=== PATIENT | female | born 1995 | race Caucasian/White ===

== ENCOUNTER 2019-05-08 18:56 | Emergency (ER) | payer OTHER, SELFPAY ==
[2019-05-08 19:32] VITALS: BP 131/84; PULSE 80; RESP 20; TEMP 37.3; O2SAT 99
--- NOTE | 2019-05-08 20:29 | ED.SKABFB ---
HPI - Skin/Abscess/Foreign Bdy General Chief complaint: Skin/Abscess/Foreign Body Stated complaint: thinks bites on hand and cheek Time Seen by Provider: 05/08/19 20:29 Source: patient Mode of arrival: ambulatory Limitations: no limitations History of Present Illness HPI narrative: Perla Flor is a 23 yo female with PMH of asthma who comes to urgent care with skin rash on right hand and hives and rash on right side of face. Patient is unsure what what caused this but had stated friend's house last night when she started to break out Related Data Allergies Allergy/AdvReac Type Severity Reaction Status Date / Time No Known Allergies Allergy Verified 05/08/19 19:38 Review of Systems Review of Systems: Narrative: CONSTITUTIONAL: Denies fever, chills, sweats. EYES: Denies visual changes, redness, discharge. ENT: Denies rhinorrhea, congestion, sore throat, otalgia. CARDIOVASCULAR: Denies chest pain, palpitations, edema. RESPIRATORY: Denies dyspnea, wheezing, cough GASTROINTESTINAL: Denies abdominal pain, nausea, vomiting, diarrhea. GENITOURINARY: Denies dysuria, hematuria, abnormal discharge SKIN: Rash and hives on right hand and right face MUSCULOSKELETAL: Denies acute back pain, joint pain, or myalgia. NEUROLOGIC: Denies numbness, or focal weakness. PSYCHIATRIC: Denies anxiety or depression. PMFSH Social History Social History Smoking status: Current every day smoker Alcohol intake: current Comments At time of signature, I agree with nursing past medical, surgical, social and family history. There is no relevant family history pertinent to the presenting complaint. Exam Narrative: Exam Narrative: GENERAL: This is a well-nourished, well-developed patient, in mild distress. HEAD: normocephalic, atraumatic. EYES: PERRL. Sclera clear/white. Vision is grossly intact. EARS: External ears normal, auditory canals clear Hearing grossly intact. NOSE: External nose normal with no obvious nasal discharge, nares without redness, no rhinorrhea. THROAT: Mucous membranes moist, posterior pharynx clear. Mouth: poor dentition, no lesions in mouth NECK: Neck supple, non-tender CARDIOVASCULAR: Regular rate and rhythm without murmurs, gallops, or rubs. RESPIRATORY: Clear to auscultation. Breath sounds equal bilaterally. mild wheezes, rales, or rhonchi. GASTROINTESTINAL: Abdomen soft, non-tender, SKIN: warm, intact -hives to right face, petechial rash to right hand with swelling NEURO: awake, alert, and oriented to person, place and time. There were no obvious focal neurologic abnormalities. Steady gait EXTREMITIES: Normal range of motion. No edema. BACK: Nontender without deformity . Course Course Emergency Course: Started treatment with Benadryl and Keflex Vital Signs Vital signs: Vital Signs Temperature 99.1 F 05/08/19 19:32 Pulse Rate 80 05/08/19 19:32 Respiratory Rate 20 05/08/19 19:32 Blood Pressure 131/84 05/08/19 19:32 Pulse Oximetry 99 05/08/19 19:32 Temperature 99.1 F 05/08/19 19:32 Pulse Rate 80 05/08/19 19:32 Respiratory Rate 20 05/08/19 19:32 Blood Pressure 131/84 05/08/19 19:32 Pulse Oximetry 99 05/08/19 19:32 MDM - Skin/Abscess/Foreign Bdy Differential Diagnosis Differential diagnosis: Likely abscess of skin or subcutaneous tissue, urticaria and cellulitis Discharge Plan Discharge Clinical Impression: Contact dermatitis Qualifiers: Contact dermatitis type: unspecified Contact dermatitis trigger: unspecified trigger Qualified Code(s): L25.9 - Unspecified contact dermatitis, unspecified cause Cellulitis Qualifiers: Site of cellulitis: extremity Site of cellulitis of extremity: upper extremity Laterality: right Qualified Code(s): L03.113 - Cellulitis of right upper limb Patient Disposition: Home, Self-Care Condition: Stable Instructions: Antibiotic Form, Cellulitis (DC) Prescriptions: New ce
== END 2019-05-08 20:40 | disposition home or self-care (01) ==
PROVIDERS: Emergency Provider Nurse Practitioner
DX: L25.9 Unspecified contact dermatitis, unspecified cause (principal); L03.113 Cellulitis of right upper limb; F17.200 Nicotine dependence, unspecified, uncomplicated
CPT/HCPCS: 99213; G0463

== ENCOUNTER 2019-07-20 19:06 | Emergency (ER) | payer OTHER, SELFPAY ==
[2019-07-20 19:15] VITALS: BP 127/88; PULSE 97; RESP 20; TEMP 36.8; O2SAT 98
--- NOTE | 2019-07-20 19:18 | ED.DENTAL ---
HPI - Dental/Oral General Chief complaint: Dental/Oral Stated complaint: tooth pain Time Seen by Provider: 07/20/19 19:20 Source: patient and RN notes reviewed Mode of arrival: ambulatory Limitations: no limitations History of Present Illness Complaint: tooth pain Location: Tooth # (16) Related Data Allergies Allergy/AdvReac Type Severity Reaction Status Date / Time No Known Allergies Allergy Verified 07/20/19 19:30 Review of Systems Review of Systems: Narrative: CONSTITUTIONAL: Denies malaise, chills, sweats, or fever. EYES: Denies visual changes ENT: Denies rhinorrhea, congestion, sinus pain, otalgia or sore throat. Reports left upper dental pain, facial swelling CARDIOVASCULAR: Denies chest pain, palpitations RESPIRATORY: Denies dyspnea. MUSCULOSKELETAL: Denies myalgia. NEUROLOGIC: Denies numbness, weakness, or headache. All systems reviewed & are unremarkable except as noted in HPI and below PMFSH Social History Social History Smoking status: Current every day smoker Alcohol intake: current Comments At time of signature, agree with nursing past medical, surgical, social and family history. There is no relevant family history pertinent to the presenting complaint Exam Narrative: Exam Narrative: GENERAL: Well-appearing, well-nourished, and in no acute distress. HEAD: Normocephalic EYES: PERRLA, conjunctivae clear ENT: Nares clear. Mucous membranes moist. Oropharynx without edema, erythema or lesions. No drooling. Many missing teeth, caries, tooth #16 broken, no periapical abscess noted NECK: Supple. No lymphadenopathy. CHEST: No respiratory distress. Speaks in full sentences. HEART: Regular rate and rhythm. SKIN: Warm, dry, no rash. NEURO: Alert and oriented x3. PSYCH: Normal mood and affect Course Course Emergency Course: Patient is aware of diagnosis, understands and agrees to treatment plan. Anticipatory guidance given. Patient agrees to follow-up as directed and is aware of reasons to seek care at the emergency department. Portions of this record may have been created with voice recognition software Vital Signs Vital signs: Vital Signs Temperature 98.2 F 07/20/19 19:15 Pulse Rate 97 07/20/19 19:15 Respiratory Rate 07/20/19 19:15 Blood Pressure 127/88 07/20/19 19:15 Pulse Oximetry 98 07/20/19 19:15 Temperature 98.2 F 07/20/19 19:15 Pulse Rate 97 07/20/19 19:15 Respiratory Rate 20 07/20/19 19:15 Blood Pressure 127/88 07/20/19 19:15 Pulse Oximetry 98 07/20/19 19:15 Reviewed. Patient has been instructed to follow up with her primary care provider within the next week regarding her elevated blood pressure today. MDM - Dental/Oral MDM Narrative Medical decision making narrative: Patients pain and complaint coupled with physical findings are consistant with dentalgia. There are no focal signs of space occupying lesions that are compromising to the airway; no dysphagia, odynophagia, dysphonia, or dyspnea. No uvular deviation or soft palate edema. Patient is non-toxic appearing. The floor of the mouth is soft with no signs of Crow's Angina; no induration below mandible, no neck pain. Patient is without trismus or drooling and able to swallow secretions. Patient is felt appropriate for discharge home with dental follow up. Critical Care Time Critical Care Time Critical Care Time: No Discharge Plan Discharge Clinical Impression: Pain, dental Patient Disposition: Home, Self-Care Condition: Stable Instructions: Antibiotic Form, Dental Abscess (ED) Additional Instructions: Take antibiotic as directed Avoid temperature extremes May apply heat or ice to the face Gentle brushing and flossing Alternate Tylenol and ibuprofen as needed for pain Follow-up with the dentist as soon as possible--see the list provided Prescriptions: New ibuprofen 800 mg tablet 800 mg PO Q6H PRN (Omar
== END 2019-07-20 19:40 | disposition home or self-care (01) ==
PROVIDERS: Emergency Provider Nurse Practitioner
DX: K08.89 Other specified disorders of teeth and supporting structures (principal); F17.200 Nicotine dependence, unspecified, uncomplicated
CPT/HCPCS: 99213; G0463

== ENCOUNTER 2021-11-22 19:11 | Emergency (ER) | payer SELFPAY ==
[2021-11-22 19:17] VITALS: BP 133/75; PULSE 90; RESP 20; TEMP 37.3; O2SAT 100
--- NOTE | 2021-11-22 19:49 | ED.DENTAL ---
HPI - Dental/Oral General Chief complaint: Dental/Oral Stated complaint: tooth pain Time Seen by Provider: 11/22/21 19:30 Source: patient, RN notes reviewed and old records reviewed Mode of arrival: ambulatory Limitations: no limitations History of Present Illness HPI Narrative: 26 year old female who presents to [facility] with complaints of dental pain and some swelling to the left jaw area for the past 1 week duration with increased discomfort today. Patient reports that she has not seen a dentist since she was 19 years old and admits to not brushing her teeth well when growing up or even now. Patient report tobacco use daily for many years. Patient rates her dental pain to #18 tooth as a 10/10 but has not taken any OTC medications. Patient denies any difficulty with swallowing or ay shortness of breath. MD Complaint: tooth pain Location: Tooth # (18) Onset (ago): week(s) Severity scale (1-10): 10 Treatment prior to arrival: none Related Data Allergies Allergy/AdvReac Type Severity Reaction Status Date / Time No Known Allergies Allergy Verified 11/22/21 19:24 Review of Systems Review of Systems: CONSTITUTIONAL: Denies fever, chills, or sweats. EYES: Denies visual changes, redness, or discharge. ENT: Denies rhinorrhea, congestion, sore throat, or otalgia.positive for left lower molar dental pain and left facial swelling CARDIOVASCULAR: Denies chest pain, palpitations, or edema. RESPIRATORY: Denies cough or dyspnea. GASTROINTESTINAL: Denies abdominal pain, nausea, vomiting, or diarrhea. GENITOURINARY: Denies dysuria or hematuria. SKIN: Denies rash or itching. MUSCULOSKELETAL: Denies back pain, joint pain, or myalgia. NEUROLOGIC: Denies headache, numbness, or weakness. PSYCHIATRIC: Positive history of anxiety or depression. All systems reviewed & are unremarkable except as noted in HPI and below [facility] Past Medical History Medical History (Updated 11/23/21 @ 00:00 by Elissa Ashton) Anxiety and depression Bipolar 1 disorder, mixed Social History Social History (Updated 11/24/21 @ 02:00 by Naomy Monge NP) Smoking packs per day: 1 Smoking cigarettes per day: 20.0 Smoking status: Current every day smoker Tobacco type: cigarettes Alcohol intake: unknown Substance use: unknown Living arrangements: with family Gender identity (if verbalized by the patient): Female Comments At time of signature, agree with nursing past medical, surgical, social and family history. There is no relevant family history pertinent to the presenting complaint Exam Narrative: GENERAL: Well-appearing, well-nourished, and in no acute distress.ooth today which has hole noted to t HEAD: Normocephalic, atraumatic. EYES: PERRLA and EOMI. ENT: Nares clear, no rhinorrhea or epistaxis. Mucous membranes moist.TM's normal with good light reflex, throat pink with no lesions or tonsil swelling, Numerous broken decayed teeth with pain reported to #18 tooth with hole noted in center of tooth with surround gums red and inflamed with pain noted with pressure applied with cotton tip applicator.. Some left jaw swelling noted No Crow angina or any trismus. NECK: Supple. no lymphadenopathy CHEST: Clear to auscultation. No respiratory distress.SAO2 100% on room air HEART: Regular rate and rhythm. No murmur heard. Normal peripheral pulses ABDOMEN: Soft, nontender, nondistended, normal active bowel sounds. EXTREMITIES: Normal range of motion. No edema. SKIN: Warm, dry, no rash. NEURO: No focal deficits. Alert and oriented x3. Course Course Level of Care: Express Care Visit Vital Signs Vital signs: Vital Signs Temperature 37.3 C 11/22/21 19:17 Pulse Rate 90 11/22/21 19:17 Respiratory Rate 11/22/21 19:17 Blood Pressure 133/75 11/22/21 19:17 Pulse Oximetry 100 11/22/21 19:17 Oxygen Delivery Room Air 11/22/21 19:17 Temperature 37.3 C 11/22/21 19:17 Pulse Rate 90 11/22/21 19:17 Respiratory Rate 20
== END 2021-11-22 20:17 | disposition home or self-care (01) ==
PROVIDERS: Emergency Provider Registered Nurse
DX: K04.7 Periapical abscess without sinus (principal); F17.210 Nicotine dependence, cigarettes, uncomplicated
CPT/HCPCS: 99213; G0463

== ENCOUNTER 2022-11-29 13:29 | Emergency (ER) | payer SELFPAY ==
[2022-11-29 13:45] VITALS: BP 117/75; PULSE 83; RESP 16; TEMP 36.6; O2SAT 83
--- NOTE | 2022-11-29 14:24 | ED.GENADULT ---
HPI - General Adult General Chief complaint: Skin/Abscess/Foreign Body Stated complaint: rash under breast Source: patient and family Mode of arrival: ambulatory Limitations: no limitations History of Present Illness HPI narrative: Patient presents for evaluation of redness noted to the right breast for the last 5 days. Two days ago it began draining. She placed a gauze dressing on it and it has a small amount of thick yellow shadowing noted on the dressing. No fever, chills, nausea, vomiting. She is not diabetic. No personal or family history of breast cancer. She smokes approximately 1 pack per day. Denies any significant pain in the area. Related Data Allergies Allergy/AdvReac Type Severity Reaction Status Date / Time No Known Allergies Allergy Verified 11/22/21 19:24 Review of Systems Review of Systems: CONSTITUTIONAL: Denies fever, chills, or sweats. EYES: Denies visual changes, redness, or discharge. ENT: Denies rhinorrhea, congestion, sore throat, or otalgia. CARDIOVASCULAR: Denies chest pain, palpitations, or edema. RESPIRATORY: Denies cough or dyspnea. GASTROINTESTINAL: Denies abdominal pain, nausea, vomiting, or diarrhea. GENITOURINARY: Denies dysuria or hematuria. SKIN: Reports redness to the right breast with recent thick yellow drainage. MUSCULOSKELETAL: Denies back pain, joint pain, or myalgia. NEUROLOGIC: Denies headache, numbness, dizziness, or weakness. PSYCHIATRIC: Denies anxiety or depression. [facility] Past Medical History Medical History (Updated 11/29/22 @ 14:26 by TC Valenzuela, ) Anxiety and depression Bipolar 1 disorder, mixed Surgical History Surgical History (Updated 11/29/22 @ 14:26 by TC Valenzuela, ) No pertinent past surgical history Family History Family History Mother Family history non-contributory Social History Social History Smoking packs per day: 1 Smoking cigarettes per day: 20.0 Smoking status: Current every day smoker Tobacco type: cigarettes Alcohol intake: unknown Substance use: unknown Living arrangements: with family Gender identity (if verbalized by the patient): Female Spiritual care concerns: No Exam Narrative: GENERAL: Well-appearing, well-nourished, and in no acute distress. HEAD: Normocephalic, atraumatic. EYES: PERRLA and EOMI. ENT: Nares clear, no rhinorrhea or epistaxis. Mucous membranes moist. Oropharynx without tonsillar hypertrophy exudate or other lesions. Bilateral TMs pearly eng nonbulging NECK: Supple. No adenopathy or masses. No carotid bruits or JVD CHEST: Clear to auscultation. No respiratory distress. No wheezes rales or rhonchi HEART: Regular rate and rhythm. No murmur heard. Normal peripheral pulses. ABDOMEN: Soft, nontender, nondistended, normal active bowel sounds. EXTREMITIES: Normal range of motion. No edema. SKIN: There is a 14 x 17 cm area of erythema noted to the right breast with an approximately 1.5 cm area of excoriation within that area. There is no underlying fluctuance or induration NEURO: No focal deficits. Alert and oriented x3. PSYCH: Normal mood and affect. Course Course Emergency Course: This is a 27-year-old female who presented for evaluation of redness to the right breast. Exam is consistent with mastitis. Area has already been draining. There is no underlying fluctuance or induration. Will treat with Bactrim and Keflex at home. Advise she must go to the emergency department if symptoms worsen or she develops fever, chills, nausea, vomiting. Otherwise she should follow-up with her primary provider this coming week. Patient in agreement with plan of care Level of Care: Express Care Visit Vital Signs Vital signs: Vital Signs Temperature 36.6 C 11/29/22 13:45 Pulse Rate 83 11/29/22 13:45 Respiratory Rate 16 11/29/22 13:45 Bl
== END 2022-11-29 14:29 | disposition home or self-care (01) ==
PROVIDERS: Emergency Provider Nurse Practitioner
DX: N61.0 Mastitis without abscess (principal); F17.210 Nicotine dependence, cigarettes, uncomplicated
CPT/HCPCS: 99213; G0463

== ENCOUNTER 2024-09-06 17:56 | Emergency (ER) | payer SELFPAY ==
--- OUTSIDE RECORDS SUMMARY | 2024-09-06 18:04 | XMS_ITS | Clinical Summary ---
Author Organization [facility] Address [address] [place] [address] Phone Care Team Providers Care Catch [place] Cleaner Name Role Phone Provider, None Primary Care Provider Unavailabl e Allergies No known active allergies Medications ondansetron (ZOFRAN-ODT) 4 MG TABLET DISPERSIBLE Take 1 Tab by mouth every 8 hours as needed for Nausea. 10 Tab 0 7 Active famotidine (PEPCID) 20 MG Tablet Take 1 Tab by mouth 2 times daily as needed. 30 Tab 0 7 Active predniSONE (DELTASONE) 50 MG Tablet Take 1 Tab by mouth daily. 5 Tab 7 Active diphenhydrAMINE (BENADRYL) 25 MG Capsule Take 1-2 Caps by mouth every 4 hours as needed for Other (itching). 20 Cap 7 Active ibuprofen (MOTRIN) 800 MG Tablet Take 1 Tab by mouth every 8 hours as needed. 30 Tab 7 Active traMADol (ULTRAM) 50 MG TabletIndication s:Dental caries Take 1-2 Tablets by mouth every 6 hours as needed for Moderate or more severe pain. 20 Tablet 2 Active HYDROcodone-acet aminophen (NORCO) 5-325 MG TabletIndication s:Dental infection Take 1 Tablet by mouth every 6 hours as needed for Moderate or more severe pain. 15 Tablet 3 Active cyclobenzaprine (FLEXERIL) 5 MG Tablet Take 1 Tablet by mouth 3 times daily as needed for Muscle spasms. 15 Tablet 4 Active ibuprofen (MOTRIN) 600 MG Tablet Take 1 Tablet by mouth every 8 hours. 20 Tablet 4 Active traMADol (ULTRAM) 50 MG TabletIndication s:Dental infection Take 1 Tablet by mouth every 6 hours as needed for Moderate or more severe pain. 12 Tablet 4 Active Active Problems No known active problems Social History Tobacco Use Types Packs/Day Years Used Date Smoking Tobacco: Every Day Cigarettes Tobacco Cessation:Ready to Q uit: Not Asked; Counseling Given: Not Answered Alcohol Use Standard Drinks/Week Comments Yes 0 (1 standard drink = 0.6 oz pur e alcohol) 2-3 pints per week Comments No Sex and Gender Information Value Date Recorded Sex Assigned at Not on file Legal Sex Female 9:06 PM [employer] Gender Identity Not on file Sexual Orientation Not on file Last Filed Vital Signs Vital Sign Reading Time Taken Comments Blood Pressure 142/99 01/03/2024 9:36 PM CDT Pulse 79 01/03/2024 9:36 PM CDT Temperature 36.8 C (98.3 F) 01/03/2024 9:36 PM CDT Respiratory Rate 16 01/03/2024 9:36 PM CDT Oxygen Saturation 99% 01/03/2024 9:36 PM CDT Inhaled Oxygen Concentration - - Weight 81.6 kg (180 lb) 01/03/2024 9:36 PM CDT Height 160 cm (5' 3) 01/03/2024 9:36 PM CDT Body Mass Index 31.89 01/03/2024 9:36 PM CDT Plan of Treatment Health Maintenance Due Date Last Done Comments Hepatitis C Virus (HCV) Screening 1996 Human Papillomavirus (HPV) Immunization (2 - 3-dose series) 03/16/2012 02/17/2012 Pneumococcal Immunization Combined (1 of 2 - PCV) 2015 Pap Smear 2017 SARS-COV-2 Immunization ( season) 2023 Influenza Immunization (Season Ended) 2024 Respiratory Syncytial Virus (RSV) Immunization (Adult) (1 - 1-dose 75+ series) 2071 Hepatitis B Immunization Completed 997, 1996, 1996 DTaP/Tdap/Td Immunization Discontinued 2011, 08/02/1997, 01/11/1997, Additional history exists Meningococcal Immunization (ACWY) Aged Out 02/17/2012 No longer eligible based on patient's age to complete this topic TdaP Immunization Completed 02/17/2012 Rotavirus Immunization Aged Out No lo nger eligible based on patient's age to complete this topic Care Teams C[employer] [place] Cleaner Relationship Specialty Start Date End Date Provider, None [place] PCP - General 05/24/16
--- OUTSIDE RECORDS SUMMARY | 2024-09-06 18:04 | XMS_ITS | Data Portability ---
Author Organization [facility] Luis Address [address] [place] [address] Assessment No assessment recorded. Plan of Treatment Reminders Order Date Submit Date Provider Last Modified By Organization Details Last Modified Time Details Appointments None recorde d. Lab pap, IG + CT/NG/T V + reflex HR HPV 2019 020 [facility], [address] [place] [address], [address], [place], [address], 0 16:08:03 Referral None recorde d. Procedures None recorde d. Surgeries None recorde d. Imaging None recorde d. Medication Orders Depo-Pr overa 150 mg/mL intramu scular suspens ion 2019 020 [id number], [address] [place], [address], 0 15:40:44 Depo-Pr overa 150 mg/mL intramu scular suspens ion 2019 020 [email or web address] Not available 0 16:44:09 Depo-Pr overa 150 mg/mL intramu scular suspens ion 2018 019 [id number], [address] [place], [address], 9 15:35:45 medroxy progest erone 150 mg/mL intramu scular suspens ion 2018 019 [id number], [address] [place], [address], 12:00:36 Patient TargetsNo targets recorded. Patient InstructionsNo instructions recorded. Reason for Referral None Reported. Results Created Date Observation Date Name Description Value Unit Range Abnormal Flag Note LastModifiedBy Organization Detail LastModifiedTime 05/25/19 20 05/27/2019 pap, IG + CT/NG /TV + refle x HR HPV chlamydia, nuc. acid amp Negati ve negati ve Not Available [facility] ([facility]) [address] [place], [address], 05/28/2019 16:08:03 05/25/19 20 05/27/2019 pap, IG + CT/NG /TV + refle x HR HPV gonococcus, nuc. acid amp Negati ve negati ve Not Available [facility] ([facility]) [address] [place], [address], 05/28/2019 16:08:03 05/25/19 20 05/27/2019 pap, IG + CT/NG /TV + refle x HR HPV trich vag by ANNEMARIE Negati ve negati ve Not Available [facility] ([facility]) [address] [place], [address], 05/28/2019 16:08:03 05/25/19 20 05/28/2019 pap, IG + CT/NG /TV + refle x HR HPV diagnosis: Commen t NEGAT ELISA FOR INTRA EPITH ELIAL LESIO N OR ALLISON BENITES . PREDO WILL CE OF COCCO BACIL LI CONSI STENT WITH SHIFT IN VAGIN AL HANNAH IS PRESE NT. Not Available [facility] ([facility]) [address] [place], [address], 05/28/2019 16:08:03 05/25/19 20 05/28/2019 pap, IG + CT/NG /TV + refle x HR HPV specimen adequacy: Commen t Satis facto ry for evalu ation . No endoc ervic al compo nent is ident ified . Not Available [facility] ([facility]) [address] [facility], [place], [address], 05/28/2019 16:08:03 05/25/19 20 05/28/2019 pap, IG + CT/NG /TV + refle x HR HPV clinician provided ICD10: Maral mary Z01.4 19 Not Available [facility] ([facility]) [address] [facility], [place], [address], 05/28/2019 16:08:03 05/25/19 20 05/28/2019 pap, IG + CT/NG /TV + refle x HR HPV performed by: Maral Mir on, Cytot shanique mary (ASCP ) Not Available [facility] ([facility]) [address] [facility], [place], [address], 05/28/2019 16:08:03 05/25/19 20 05/28/2019 pap, IG + CT/NG /TV + refle x HR HPV . . Not Available [facility] ([facility]) [address] [place], [address], 05/28/2019 16:08:03 05/25/19 20 05/28/2019 pap, IG + CT/NG /TV + refle x HR HPV note: Maral mary The Pap smear is a scree sunday test desig allison to aid in the detec tion of pavel ligna nt and malig nant condi tions of the uteri ne cervi x. It is not a diagn ostic proce dure and shoul d not be used as the sole means of detec ting cervi lisa cance r. Both false -posi tive and false -nega tive repor ts do occur . Not Available [facility] ([facility]) [address] [facility], [place], [address], 05/28/2019 16:08:03 05/25/19 20 05/28/2019 pap, IG + CT/NG /TV + refle x HR HPV test methodology: Commen t This liqui d based ThinP rep(R ) pap test was meron cooper with the use of an image guide jennifer lara. Not Available [facility] ([facility]) [address] [facility], [place], [address], 05/28/2019 16:08:03 05/25/19 20 05/28/2019 pap, IG + CT/NG /TV + refle x HR HPV . Commen t The HPV DNA refle x crite lona were not met with this speci men resul t there fore, no HPV testi ng was perfo rmed. Not Available [facility] ([facility]) [address] [facility], [place], [address], 05/28/2019 16:08:03 Result Notes None recorded. Problems No Known Problems Procedures Surgical History Date Name Laterality Status Provider Name and Address Organization Details Recorded Time 0 Date of Last Pap Smear completed Saranya Meyer MA [place] [facility] [place] 05/30/2019 07:57:00 9 Control Implant Removal completed KAREN Liao Attn: Accounting,[address] [facility], [place], [address], [place] [facility] [place] 04/20/2018 14:15:28 Imaging Results None recorded. Procedure Notes None recorded. Medical Equipment None Reported. Allergies No known drug allergies Medications Name Sig Start Date Stop Date Status Note LastModified by Organization Details LastModified Time Depo-Senior Clinical Research Associate a 150 mg/mL intramuscul ar suspension Inject 1 mL every 3 months by intramusc ular route. 2019 active Not Available Not Available Not Avai lable cephalexin 500 mg capsule active Not Available Not Available Not Available Ventolin HFA 90 mcg/actuati on aerosol inhaler active Not Available Not Available Not Available azithromyci n 500 mg tablet Take 2 tablets every day by oral route for 1 day. 04/20 completed Not Available Not Available Not Available Vitals Date Recorded Body height Body mass index (BMI) Body weight Systolic blood pressure Diastolic blood pressure Provider Name and Address Organization Details Last Updated DateTime 04/11/2019 162.56 cm 29.4 kg/m2 30768.3 g 110 mm[Hg] 62 mm[Hg] Stephanie Mcrae RN [facility] 0 15:09:04 Date Recorded Body height Body mass index (BMI) Body weight Systolic blood pressure Diastolic blood pressure Provider Name and Address Organization Details Last Updated DateTime 05/25/2019 162.56 cm 29 kg/m2 41441.11 g 122 mm[Hg] 74 mm[Hg] Brit Diaz MA [facility] 0 14:53:16 Date Recorded Body height Body mass index (BMI) Body weight Systolic blood pressure Diastolic blood pressure Provider Name and Address Organization Details Last Updated DateTime 07/06/2019 162.56 cm 29.3 kg/m2 54912.5 g 118 mm[Hg] 80 mm[Hg] Brit Diaz MA [facility] 0 15:38:30 Date Recorded Body height Body mass index (BMI) Body weight Provider Name and Address Organization Details Last Updated DateTime 10/12/2018 162.56 cm 27.5 kg/m2 37121.92 g Marge Rivas MA [facility] 10/12/2018 11:53:08 Date Recorded Body height Body mass index (BMI) Body weight Systolic blood pressure Diastolic blood pressure Provider Name and Address Organization Details Last Updated DateTime 01/11/2019 162.56 cm 28.2 kg/m2 35275.15 g 128 mm[Hg] 70 mm[Hg] Brit Diaz MA [facility] 9 15:01:36 Social History Question Answer Notes LastModified by Organizat ion Details LastModified Time Tobacco Smoking Status Current Every Day Smoker Marge Rivas MA null, [facility] 02/06/2016 15:27:26 What Was The Date Of Your Most Recent Tobacco Screening? 10/12/2018 Information n ot available 10/27/2018 How Much Tobacco Do You Smoke? 1 PPW [email or web address] Information not available 02/06/2016 How Many Years Have You Smoked Tobacco? 8 [email or web address] Information not available 02/06/2016 Sex: Unknown Functional Status None recorded. Mental Status None recorded. Family History Nothing Reported. Medical History Condition Response Headaches/Migraines Y Muscle, Joint, or Bone Problems Y Gynecological History Statement/Question Response STIs/STDs No Date of Last Pap Smear 05/25/2019 Sexual Problems? Y Current Control Method Other LMP Approximate Sexually Active? Y On BCP's at Conception? Y Obstetrics History GPAL:G 0 P 0 0 0 0 Past Encounters Encounter ID Performer Location Encounter Start Date Encounter Closed Date Diagnosis/Indication Diagnosis SNOMED-CT Code Diagnosis ICD10 Code Diagnosis Note [id number] KAREN Liao Womens ([facility] 122) [address] [facility] [place] [address] 02/06/2016 15:14:29 02/07/2016 08:44:53 Venereal disease screening 065940870 Z11.3 Irregular periods 902779 07 N92.6 Contracept ion care management 993889652 Z30.9 [id number] KAREN Liao Womenjose m ([facility] 122) [address] [facility] [place] [address] 02/18/2016 10:49:07 02/18/2016 14:41:08 Chlamydial infection 594222290 A74.9 [id number] KAREN Liao 14 OB [address] [facility] [place] [address] 04/20/2018 13:33:24 04/21/2018 12:58:57 Contraception care management 884165376 Z30.9 Removal of subcutaneous contraceptive 520732167 Z30.46 [id number] KAREN Liao 14 OB [address] [facility] [place] [address] 07/15/2018 15:54:03 07/18/2018 08:49:17 Contraception care management 855691700 Z30.9 1. All forms of control reviewed with patient including risks, benefits, pros and cons. 2. Patient verbalized understand ing of all forms and that abstinence is the only true form of control. 3. Condom use reviewed as well and prevention and transmissi on of STD's. 4. Depo injection given 5. Will return q 3 months for injections , sooner if needed. [id number] KAREN Liao 14 OB [address] [facility] [address] 10/12/2018 11:42:07 10/13/2018 09:39:49 Contraception care 287510010 Z30.40 1. All forms of control reviewed with patient including risks, benefits, pros and cons. 2. Patient verbalized understand ing of all forms and that abstinence is the only true form of control. 3. Condom use reviewed as well and prevention and transmissi on of STD's. 4. Depo injection given 5. Will return q 3 months for injections , sooner if needed. [id number] KAREN Liao 14 OB [address] [facility] [place] [address] 01/11/2019 14:43:39 01/12/2019 09:49:08 Contraception care management 773225068 Z30.9 1. All forms of control reviewed with patient including risks, benefits, pros and cons. 2. Patient verbalized understand ing of all forms and that abstinence is the only true form of control. 3. Condom use reviewed as well and prevention and transmissi on of STD's. 4. Depo injection given 5. Will return q 3 months for injections , sooner if needed. [id number] KAREN Liao 14 OB [address] [facility] [place] [address] 04/11/2019 14:50:06 04/12/2019 09:23:16 Contraception care management 121450731 Z30.9 1. All forms of control reviewed with patient including risks, benefits, pros and cons. 2. Patient verbalized understand ing of all forms and that abstinence is the only true form of control. 3. Condom use reviewed as well and prevention and transmissi on of STD's. 4. Depo injection given 5. Will return q 3 months for injections , sooner if needed. [id number] KAREN Liao 14 OB [address] [facility] [place] [address] 05/25/2019 14:41:15 05/26/2019 10:13:10 Gynecologic examination 69099088 Z01.419 1. Counseled regarding prevention of STD's , condom use and prevention . 2. Counseled regarding contracept elisa options, risk factors and side effects. 3. Advised avoidance of tobacco, alcohol, and drugs . 4. Counseled regarding folic acid supplement ation, calcium needs and prevention of osteoporos is . 5. BSE reviewed and recommende d. 6. Follow up in one year or sooner if needed. [id number] KAREN Liao [place] 14 OB [address] [facility] [place] [address] 07/06/2019 15:20:20 07/07/2019 10:21:10 Contraception care management 778612047 Z30.9 1. All forms of control reviewed with patient including risks, benefits, pros and cons. 2. Patient verbalized understand ing of all forms and that abstinence is the only true form of control. 3. Condom use reviewed as well and prevention and transmissi on of STD's. 4. Depo injection given 5. Will return q 3 months for injections , sooner if needed. Health Concerns Section Related Observation LastModified by Organization Detai ls LastModified Time None Recorded Concern Status LastModified by Organization Details LastModified Time None Recorded Advance Directives Directive None Recorded Payers Encounter Date Sequence Insurance Name Policy Number Policy Otto Covered Member ID Otto Member ID Guarantor Name 10/12/[address] [facility] [id number] Elyse Jay Flor [id number] Perla Flor 01/11/[address] [facility] [id number] Elyse Jay Chacho [id number] Perla Flor 04/11/[address] [facility] [id number] Elyse Thompson Chacho [id number] Perla Flor 05/25/[address] [facility] [id number] Elyse Thompson Chacho [id number] Perla Flor 07/06/[address] [facility] [id number] Elyse Thompson Chacho [id number] Perla Flor Notes Date Note Type Note Provider Name and Address Organization Details Recorded Time 10/12/2018 text/html Here for depo. D oing well with no complaints. KAREN Liao Attn: Accounting,[address] [facility], [place], [address], [facility] 10/12/2018 12:17:41 01/11/2019 text/html here for depo. d [facility]ing well [facility] Att[facility]: Accounting,[address] [facility], [place], [address], [facility] 01/11/2019 15:33:28 04/11/2019 text/html here for depo. d oing well KAREN Liao Attn: Accounting,[address] [place], [address], [facility] 04/11/2019 15:26:04 05/25/2019 text/html on depo, no complaintsnever has had pap KAREN Liao Attn: Accounting,[address] [place], [address], [facility] 05/25/2019 15:11:40 05/25/2019 text/html Annual GYNReport ed bypatient.History:no gynecologic complaints Menstrual cycle:Normal menses Urinary symptoms:No hematuria; No incontinence Vulva:No genital lesion Vagina:Normal vaginal discharge Breast:No breast pain; No breast lump; No nipple discharge Current Contraception:Satisfi ed with current contraception; Intramuscular contraceptive injection Sexual complaints:No sexual complaints; No pain during intercourse; Normal libido Menopausal Symptoms:No menopausal symptoms; Normal vaginal lubrication Psychological symptoms:No depression; No anxiety; No PMDD Preventive measures:Encourage self breast examination; Encourage regular exercise; Encourage no tobacco use; Encourage regular mammograms starting age 40; Followed with Q3 year pap smear and high risk HPV typing KAREN Liao Attn: Accounting,[address] [place], [place], [address] [place] [address], [facility] 05/25/2019 15:11:40 07/06/2019 text/html here for depo, d oing well with no complaints. KAREN Liao Attn: Accounting,[address] [place], [address], [facility] 07/06/2019 15:57:30 OBGyn Episode No OBEpisode recorded.
[2024-09-06 18:07] VITALS: BP 151/105; PULSE 94; RESP 18; TEMP 36.1; O2SAT 98
[2024-09-06 18:12] VITALS: BP 144/100
--- NOTE | 2024-09-06 18:35 | ED_ITS ---
HPI - Abdominal Pain General Chief Complaint: Abdominal Pain Stated Complaint: abdominal pain,nausea Source: patient Mode of arrival: ambulatory Limitations: no limitations History of Present Illness HPI narrative: Patient is a 29-year-old female with complaints of pain to her left upper quadrant and left lower quadrant and vomiting since last night. Patient is rating her pain an 8/10. She has not taken any over the counter medication. She does admit to drinking a pint of whiskey everyday, but has not had a drink in two days. Denies shortness of breath, concern for , or chest pain. Related Data Allergies Allergy/AdvReac Type Severity Reaction Status Date / Time No Known Allergies Allergy Verified 11/22/21 19:24 Review of Systems Review of Systems: CONSTITUTIONAL: Denies body aches, fever, chills, or sweats. EYES: Denies visual changes, redness, or discharge. ENT: Denies rhinorrhea, congestion, sore throat, or otalgia. CARDIOVASCULAR: Denies chest pain, palpitations, or edema. RESPIRATORY: Denies cough or dyspnea. GASTROINTESTINAL: Reports abdominal pain, nausea, vomiting, CVA Tenderness. Denies diarrhea. GENITOURINARY: Denies dysuria or hematuria. SKIN: Denies rash, itching, or wounds. MUSCULOSKELETAL: Denies back pain, joint pain, or myalgia. NEUROLOGIC: Denies headache, numbness, tingling, or weakness. PSYCH: Denies depression or anxiety. All systems reviewed & are unremarkable except as noted in HPI and below PMFSH Past Medical History Medical History Bipolar 1 disorder, mixed Anxiety and depression Surgical History Surgical History No pertinent past surgical history Family History Family History Mother Family history non-contributory Social History Social History Smoking packs per day: 1 Smoking cigarettes per day: 20.0 Smoking status: Current every day smoker Tobacco type: cigarettes Alcohol intake: unknown Substance use: unknown Living arrangements: with family Gender identity (if verbalized by the patient): Female Spiritual care concerns: No Comments At time of signature, I have reviewed and agree with nursing past medical, surgical, social and family history unless otherwise noted. Please see nursing chart for further information. There is no relevant family history pertinent to the presenting complaint. Exam Narrative: GENERAL: Well-appearing, well-nourished, and in no acute distress. HEAD: Normocephalic, atraumatic. EYES: PERRLA, conjunctivae clear, and EOMI. ENT: Mucous membranes moist. NECK: Supple. No lymphadenopathy CHEST: Speaks in full sentences. No respiratory distress. HEART: Regular rate and rhythm. ABDOMEN: Soft, flat, Guarding and tenderness noted to LUQ/LLQ. No pulsatile ma sses. Bowel sounds x4. Negative Álvarez?s sign. No periumbilical tenderness. No Supra public tenderness or distension. Good femoral pulses bilaterally. No hernia noted. No scars or surface trauma. SKIN: Warm, dry, no rash. NEURO: Alert and oriented x3. PSYCH: Normal mood and affect. Course Course Level of Care: Express Care Visit Vital Signs Vital signs: Vital Signs Temperature 97 F L 09/06/24 18:07 Pulse Rate 94 09/06/24 18:07 Respiratory Rate 18 09/06/24 18:07 Blood Pressure 151/105 H 09/06/24 18:07 Pulse Oximetry 98 09/06/24 18:07 Oxygen Delivery Room Air 09/06/24 18:07 Temperature 97 F L 09/06/24 18:07 Pulse Rate 94 09/06/24 18:07 Respiratory Rate 18 09/06/24 18:07 Blood Pressure 144/100 H 09/06/24 18:12 Pulse Oximetry 98 09/06/24 18:07 Oxygen Delivery Room Air 09/06/24 18:07 reviewed. Transfer Transfered to: [facility] ([facility]) Transfer comments: Pt is agreeable to transfer. Requests transfer to [facility] via private vehicle. Risks of transportation reviewed with pt including injury, worsening of condition and . v/u. Motherwill be driving pt; Report called to [facility], spoke with Jackelyn Salguero RN. Pt is in stable condition at time of transfer. Advised to remain NPO and go directly to the hospital. MDM - Abdominal Pain MDM Narrative Medical decision making narrative: Discussed physical exam findings. Advised with patient the need for an ER transfer. Patient agreeable to transfer to [facility] Differential Diagnosis Differential diagnosis: Likely abdominal pain, acute appendicitis, constipation, gastroenteritis and pancreatitis Critical Care Time Critical Care Time Critical Care Time: No Discharge Plan Discharge Clinical Impression: Abdominal pain Qualifiers: Abdominal location: left upper quadrant Qualified Code(s): R10.12 - Left upper quadrant pain Patient Disposition: Acute Care Hospital Condition: Stable Patient Language: Greek Follow-up/Referrals: PHYSICIAN,ENTERPRISE ENGINEER [Primary Care Provider] -
== END 2024-09-06 18:46 | disposition short-term general hospital (02) ==
DX: R10.12 Left upper quadrant pain (principal); R10.32 Left lower quadrant pain; F17.210 Nicotine dependence, cigarettes, uncomplicated
CPT/HCPCS: 99212; G0463